=== PATIENT | male | born 1940 | race Caucasian/White ===

== ENCOUNTER 2023-03-30 08:31 | Day surgery (SDC) | payer MEDICARE, SELFPAY ==
[2023-03-30 09:07] VITALS: BP 138/78; PULSE 64; RESP 16; TEMP 36.4; O2SAT 100
[2023-03-30] MEDS: Tropicam./Phenyleph. (1/2.5%) 5 ML BTL OS ×3 (09:28→09:58)
--- NOTE | 2023-03-30 10:13 | W.ANESPRE ---
General Info Date of Service Date Performed: 03/30/23 Height: 5 ft 10 in Weight: 78.7 kg Body Mass Index (BMI): 24.9 Surgical Procedure: Operation Date: 03/30/23 10:40 Proposed Procedure Side Surgeon p Cataract Extraction with IOL Implant Left Kalin Dash MD Meds Allergies and Home Medications Allergies Allergy/AdvReac Type Severity Reaction Status Date / Time No Known Allergies Allergy Unverified 03/30/23 09:18 Home Medication Medication Instructions Recorded amlodipine 5 mg tablet 5 mg PO DAILY 03/28/23 atorvastatin 40 mg tablet 40 mg PO DAILY 03/28/23 carvedilol 3.125 mg tablet 3.125 mg PO BID 03/28/23 folic acid 1 mg tablet 1 mg PO DAILY 03/28/23 Current Visit Medications: Current Medications Generic Name Dose Route Start Last Admin Trade Name Freq PRN Reason Stop Dose Admin Acetaminophen 1,000 mg 03/30/23 06:00 Acetaminophen 500 Mg Tab PO 04/29/23 05:59 Q4H PRN PRN Balanced Salt Solution 500 ml 03/30/23 06:00 Balanced Salt Soln.-Plus 500 Ml Bag OP 04/29/23 05:59 DIRECTED ERICA Miscellaneous Medication 0 ml 03/30/23 06:00 Prednisolone 1%, Moxifloxacin 0.5%, Nepafenac 0.1% 5ml Btl OS 04/29/23 05:59 DIRECTED ERICA Miscellaneous Medication 0 ml 03/30/23 06:00 03/30/23 09:58 Tropicam./Phenyleph. (1/2.5%) 5 Ml Btl OS 04/29/23 05:59 1 drp DIRECTED ERICA Administration Tetracaine HCl 0 ml 03/30/23 06:00 Tetracaine 0.5% 4 Ml Btl OS 04/29/23 05:59 DIRECTED ERICA PFSH Active Problems Active Problems: Problem Status Onset Code Nuclear age-related cataract, left eye H25.12 Medical History Medical History History of anemia History of BPH History of chronic renal failure per pt. DIL STAGE 5 History of intestinal obstruction per pt. DIL 12/2022 History of urinary retention HLD (hyperlipidemia) HTN (hypertension) MGUS (monoclonal gammopathy of unknown significance) Tobacco Smoking/Tobacco Use Status: Former Tobacco Use Alcohol Alcohol Intake: never Substance Use Substance use: Never Substance use type: does not use Vital Signs and Lab Results Vital Signs Most Recent Vital Signs in EMR: Most Recent Vital Signs Temp Pulse Resp BP Pulse Ox 36.4 C L 64 16 138/78 100 03/30/23 09:07 03/30/23 09:07 03/30/23 09:07 03/30/23 09:07 03/30/23 09:07 Lab Results Blood Type / Crossmatch: No Data to Display Complete Blood Count: No Data to Display Complete Metabolic Panel: No Data to Display Liver Function Panel: No Data to Display Coagulation Panel: No Data to Display Cardiac Panel: No Data to Display Arterial Blood Gas: No Data to Display Venous Blood Gas: No Data to Display Pancreas Panel: No Data to Display Thyroid Panel: No Data to Display Infectious Disease: No Data to Display Blood Cultures: No Data to Display Toxicology Panel: No Data to Display Anesthesia Assessment and Plan Anesthesia History Personal History: No History of Anesthesia Complications Family History: No Family History of Anesthesia Complications Exercise Tolerance Exercise Tolerance: Metabolic Equivalents>4 Pertinent Negatives Pertinent Negatives: No Symptoms of GERD, No Major Cardiovascular Symptoms or Complaints and No Major Pulmonary Symptoms or Complaints Cardiac & Pulmonary Exam Cardiac Exam: Normal S1/S2 Heart Sounds Pulmonary Exam: Clear Bilateral Breath Sounds Implantable Cardiac Device Does patient have a Pacemaker or an ICD?: No Airway Exam Known Difficult Airway: No Mallampati Class: 2 Mouth Opening: Normal (> 3cm) Thyromental Distance: Greater than 3 cm Neck Range of Motion: Full ROM Neck Circumference: Normal Teeth Condition: Removable Dentures/Plates Upper ASA Classification ASA Score: ASA 3 Emergency Case?: No NPO Status NPO Status: NPO Clears >2 hours, Solids >8 hours Anesthesia Plan Resuscitation Status: Full Code Anesthesia Technique: MAC Anesthesia Airway Planned: Natural Airway Monitors Used: Standard Monitors
[2023-03-30 10:48] VITALS: BMI 24.9
[2023-03-30] MEDS: Balanced Salt Soln.-PLUS 500 ML BAG OP (11:01)
[2023-03-30] MEDS: Tetracaine 0.5% 4 ML BTL OS (11:02)
[2023-03-30] MEDS: Duovisc Viscoelastic System EACH 1 EACH (11:02)
[2023-03-30] MEDS: Lidocaine 1% Pres-Free 5 ML VIAL (11:03)
[2023-03-30] MEDS: Phenylephrine/Lidocaine (15/10) MG/ML 1 ML VIAL (11:04)
[2023-03-30] MEDS: Povidone-Iodine Ophth 30 ML BTL (11:04)
--- NOTE | 2023-03-30 11:18 | W.PM.DSUDISC ---
Date of service: 03/30/23 Time of Service: 11:18 Discharge Plan Disposition Patient Disposition: Home Discharge Details Attending Provider: Kalin Dash Primary Care Provider: Star Varghese Home Meds and New Rx's Prescriptions: No Action atorvastatin 40 mg tablet 40 mg PO DAILY amlodipine 5 mg tablet 5 mg PO DAILY carvedilol 3.125 mg tablet 3.125 mg PO BID folic acid 1 mg tablet 1 mg PO DAILY Discharge Instructions Stand Alone Forms: Post-op Topical Cataract, Tenzin Cabrera (DSU) Discharge Orders Discharge Orders: Discharge Order (Routine); Ordered 03/30/23 Ordered By: Kalin Dash
--- NOTE | 2023-03-30 11:19 | ROE_ITS ---
Date of service: 03/30/23 Time of Service: 11:19 Operative Note Operative Note DATE OF PROCEDURE: 03/30/23 PRE-OP DIAGNOSIS: Nuclear cataract, left eye POST-OP DIAGNOSIS: same PROCEDURE: Cataract extraction using phacoemulsification with intraocular lens implant, left eye SURGEON: Kalin Dash ANESTHESIA TYPE: Local By Surgeon and MAC Refer to Anesthesia Record PATHOLOGY: none sent COMPLICATIONS: None Patient was transported to: same day Patient's condition: stable Implants: Daryl Clareon [id number] Indications: Progressive decreased vision due to cataract, left eye Procedure Description: CATARACT SURGERY OPERATIVE REPORT PREOPERATIVE DIAGNOSIS: Nuclear cataract, left eye POSTOPERATIVE DIAGNOSIS: Same OPERATION: Cataract extraction using phacoemulsification with posterior chamber intraocular lens implant, left eye. IOL: IOL Delivery Supervisor/Model: Daryl Clareon [id number] IOL Power: + 19.0 diopters IOL Serial Number: [id number] Optic Diameter: 6.0mm Haptic/Overall Diameter: 13.0mm PHACO INFO: Daryl Anpro21urion Vision System with OZil and Active Fluidics Cumulative Dispersed Energy (CDE): 24.22 seconds SURGEON: Kalin Dash MD, BLU ANESTHESIA: Monitored Anesthesia Care (MAC), with local sub-tenon's anesthetic infiltration COMPLICATIONS: None SPECIMENS: None INDICATIONS FOR PROCEDURE: The patient is an 82-year-old male with history of diminished visual acuity in his left eye secondary to the development of nuclear cataract. He is significantly symptomatic that he desires cataract surgery and attempt to improve and maximize his vision. The option of cataract surgery was offered to the patient and he wished to proceed. See office notes for detailed information. PROCEDURE: The correct surgical eye was identified and marked as the left eye and the pupil was dilated in the preoperative area using mydriatics and cycloplegics. The dilated pupil size was 7.0 mm. The patient elected to proceed without oral sedation. The patient was brought to the operating room where cardiopulmonary monitoring was instituted and surgical time-out was performed, confirming the correct operative eye and IOL power. Topical anesthesia was administered and ophthalmic povidone-iodine 5% was inst illed into the conjunctival fornices. The cait-ocular area was prepped with Betadine 10% solution and draped in the usual sterile fashion for intraocular surgery, including an aperture drape. A Tegaderm transparent film dressing was cut in half and used to cover the lashes and lid margins. Care was taken to sequester the lashes and lid margins under the Tegaderm dressing. A lid speculum was placed between the lids of the operative eye and the Daryl LuxOR Revalia operating microscope was maneuvered into position. Christina scissors were then used to make a conjunctival buttonhole approximately 6mm posterior to the limbus in the inferonasal quadrant. Blunt dissection was carried out to expose bare sclera, and a blunt-tipped sub-tenon?s anesthesia cannula was introduced and passed posteriorly along the globe where non- preserved plain lidocaine was injected into posterior sub-Tenon?s space. A sideport knife was used to make a paracentesis port. Intraocular phenylephrine/lidocaine was injected into the anterior chamber. The anterior chamber was then filled with viscoelastic. A keratome knife was used construct a two-plane clear corneal tunnel extending 2.0mm into clear cornea. A flap was raised on the anterior capsule and capsulorhexis forceps were used to complete a continuous curvilinear capsulorhexis of 5.0 mm. Balanced salt solution was then used to perform cortical cleaving hydrodissection and nuclear hydrodelineation until the lens could be freely rotated within the capsular bag. The lens nucleus was then disassembled and removed within the capsular bag and iris plane using phacoemulsification. Residual cortical material was removed using the irrigation/aspiration handpiece. The posterior capsule was carefully polished to remove as much residual lens epithelial cells as safely possible. The capsular bag was then inflated and the anterior chamber deepened with viscoelastic. The lens implant described above was inserted into the capsular bag using the Daryl Autonome Injector. A Kuglen hook was used to dial the IOL into position. Residual viscoelastic was then removed first from posterior to the IOL, then from the anterior chamber using the I/A handpiece. The lens implant was noted to center nicely within the capsular bag. The incisions were stromally hydrated, and the anterior chamber was reformed using BSS. Then 0.5cc of moxifloxacin 1.0mg/ml were injected into the capsular bag and anterior chamber. The incisions were checked with a Weck spear and found to be secure. Several drops of ophthalmic povidone-iodine 5% were then applied to the eye followed by two drops of Imprimis combination prednisolone/moxifloxacin/nepafenac solution. The drapes were removed and a clear plastic protective eye shield was placed over the eye. The patient was then returned to Same Day Surgery in stable condition.
[2023-03-30 11:20] VITALS: BP 141/79; PULSE 62; RESP 16; TEMP 36.4; O2SAT 99
--- NOTE | 2023-03-30 11:47 | W.ANESPOSTOP ---
Postoperative Evaluation Date, Time and Location Date Performed: 03/30/23 Time Performed: 11:47 Patient Location: Day Surgery Unit Vital Signs Most Recent Imported Vital Signs: Most Recent Vital Signs Temp Pulse Resp BP Pulse Ox 36.4 C L 64 16 138/78 100 03/30/23 09:07 03/30/23 09:07 03/30/23 09:07 03/30/23 09:07 03/30/23 09:07 Assessment Mental Status: Awake (Alert & Oriented to Patient Baseline) Airway and Respiratory Function: Patent airway with normal (patient baseline) respiratory exam Cardiovascular Function: Hemodynamically Stable Hydration Status: Adequately Hydrated Nausea & Vomiting: No Nausea or Vomiting Pain: Pt. Denies Any Pain Peripheral Nerve Block: Patient did not receive a nerve block Postoperative Comments:: Discussed with patient and [id number] and will follow up and get cardiology records for our system.
== END 2023-03-30 11:58 | disposition home or self-care (01) ==
PROVIDERS: PCP Nurse Practitioner Family; Visit Provider Ophthalmology
PROC: (CPT 66984; principal; 2023-03-30 10:30)
DX: H25.12 Age-related nuclear cataract, left eye (principal); I10 Essential (primary) hypertension
CPT/HCPCS: 66984; V2632

== ENCOUNTER 2023-04-13 10:31 | Day surgery (SDC) | payer MEDICARE, SELFPAY ==
[2023-04-13 10:40] VITALS: BP 137/80; PULSE 66; RESP 16; TEMP 36.4; O2SAT 99
[2023-04-13] MEDS: Tropicam./Phenyleph. (1/2.5%) 5 ML BTL OD ×3 (10:42→11:02)
[2023-04-13 10:45] VITALS: BP 137/80; PULSE 66; RESP 16; TEMP 36.4; O2SAT 99
--- NOTE | 2023-04-13 11:16 | W.ANESPRE ---
General Info Date of Service Date Performed: 04/13/23 Height: 5 ft 10 in Weight: 77.9 kg Body Mass Index (BMI): 24.6 Surgical Procedure: Operation Date: 04/13/23 12:25 Proposed Procedure Side Surgeon p Cataract Extraction with IOL Implant Right Kalin Dash MD Meds Allergies and Home Medications Allergies Allergy/AdvReac Type Severity Reaction Status Date / Time No Known Allergies Allergy Unverified 04/13/23 10:50 Home Medication Medication Instructions Recorded amlodipine 5 mg tablet 5 mg PO DAILY 03/28/23 atorvastatin 40 mg tablet 40 mg PO DAILY 03/28/23 carvedilol 3.125 mg tablet 3.125 mg PO BID 03/28/23 folic acid 1 mg tablet 1 mg PO DAILY 03/28/23 Current Visit Medications: Current Medications Generic Name Dose Route Start Last Admin Trade Name Freq PRN Reason Stop Dose Admin Acetaminophen 1,000 mg 04/13/23 06:00 Acetaminophen 500 Mg Tab PO 05/13/23 05:59 Q4H PRN PRN Balanced Salt Solution 500 ml 04/13/23 06:00 Balanced Salt Soln.-Plus 500 Ml Bag OP 05/13/23 05:59 DIRECTED ERICA Miscellaneous Medication 0 ml 04/13/23 06:00 Prednisolone 1%, Moxifloxacin 0.5%, Nepafenac 0.1% 5ml Btl OD 05/13/23 05:59 DIRECTED ERICA Miscellaneous Medication 0 ml 04/13/23 06:00 04/13/23 11:02 Tropicam./Phenyleph. (1/2.5%) 5 Ml Btl OD 05/13/23 05:59 1 drp DIRECTED ERICA Administration Tetracaine HCl 0 ml 04/13/23 06:00 Tetracaine 0.5% 4 Ml Btl OD 05/13/23 05:59 DIRECTED ERICA PFSH Active Problems Active Problems: Problem Status Onset Code Nuclear age-related cataract, left eye H25.12 Nuclear age-related cataract, right eye H25.11 Medical History Medical History (Updated 04/13/23 @ 11:21 by Devon Browne, [employer]) Cardiomyopathy Reduced EF History of anemia History of BPH History of chronic renal failure per pt. DIL STAGE 5 History of intestinal obstruction per pt. DIL 12/2022 History of urinary retention HLD (hyperlipidemia) HTN (hypertension) MGUS (monoclonal gammopathy of unknown significance) Pulmonary hypertension Mild to Moderate from 2020 Echo Surgical History Surgical History (Updated 04/13/23 @ 10:50 by Hanny Montemayor) History of cataract surgery Tobacco Smoking/Tobacco Use Status: Former Tobacco Use Alcohol Alcohol Intake: never Substance Use Substance use: Never Substance use type: does not use Vital Signs and Lab Results Vital Signs Most Recent Vital Signs in EMR: Most Recent Vital Signs Temp Pulse Resp BP Pulse Ox 36.4 C L 66 16 137/80 99 04/13/23 10:45 04/13/23 10:45 04/13/23 10:45 04/13/23 10:45 04/13/23 10:45 Lab Results Blood Type / Crossmatch: No Data to Display Complete Blood Count: No Data to Display Complete Metabolic Panel: No Data to Display Liver Function Panel: No Data to Display Coagulation Panel: No Data to Display Cardiac Panel: No Data to Display Arterial Blood Gas: No Data to Display Venous Blood Gas: No Data to Display Pancreas Panel: No Data to Display Thyroid Panel: No Data to Display Infectious Disease: No Data to Display Blood Cultures: No Data to Display Toxicology Panel: No Data to Display Anesthesia Assessment and Plan Anesthesia History Personal History: No History of Anesthesia Complications Family History: No Family History of Anesthesia Complications Exercise Tolerance Exercise Tolerance: Metabolic Equivalents>4 Pertinent Negatives Pertinent Negatives: No Symptoms of GERD Cardiac & Pulmonary Exam Cardiac Exam: Normal S1/S2 Heart Sounds Pulmonary Exam: Clear Bilateral Breath Sounds Implantable Cardiac Device Does patient have a Pacemaker or an ICD?: No Airway Exam Known Difficult Airway: No Mallampati Class: 2 Mouth Opening: Normal (> 3cm) Thyromental Distance: Greater than 3 cm Neck Range of Motion: Full ROM Neck Circumference: Normal Teeth Condition: Removable Dentures/Plates Upper ASA Classification ASA Score: ASA 4 Emergency Case?: No NPO Status NPO Status: NPO Clears >2 hours, Solids >8 hours Anesthesia Plan Resuscitation Status: Full Code Anesthesia Technique: MAC Anesthesia Airway Planned: Natural Airway Monitors Used: Standard Monitors
[2023-04-13 11:17] VITALS: BMI 24.6
--- NOTE | 2023-04-13 11:45 | RT.EKG_ITS ---
APPROVED REPORT Exam: Resting ECG Reason for Exam: R/O A-[place] Patient Location: O HR:73 bpm ECG Measurements Heart Rate 73 AXIS NV 84 P 0 QRSd 170 QRS -88 QT 462 T 61 QTc 501 Conclusion Sinus rhythm...normal P axis, V-rate 60- 99 Atrial premature complexes in couplets...pair SV complexes w/ short R-R Right bundle branch block...QRSd>120, terminal axis(90,270)
[2023-04-13] MEDS: Tetracaine 0.5% 4 ML BTL OD (11:50)
[2023-04-13] MEDS: Povidone-Iodine Ophth 30 ML BTL (11:50)
[2023-04-13] MEDS: Balanced Salt Soln.-PLUS 500 ML BAG OP (11:52)
[2023-04-13] MEDS: Lidocaine 1% Pres-Free 5 ML VIAL (11:52)
[2023-04-13] MEDS: Phenylephrine/Lidocaine (15/10) MG/ML 1 ML VIAL (11:52)
[2023-04-13] MEDS: Duovisc Viscoelastic System EACH 1 EACH (11:59)
[2023-04-13 12:16] VITALS: BP 124/97; PULSE 53; RESP 16; TEMP 36.5; O2SAT 100
--- NOTE | 2023-04-13 12:17 | W.PM.DSUDISC ---
Date of service: 04/13/23 Time of Service: 12:17 Discharge Plan Discharge Details Attending Provider: Kalin Dash Primary Care Provider: Star Varghese Home Meds and New Rx's Prescriptions: No Action atorvastatin 40 mg tablet 40 mg PO DAILY amlodipine 5 mg tablet 5 mg PO DAILY carvedilol 3.125 mg tablet 3.125 mg PO BID folic acid 1 mg tablet 1 mg PO DAILY Discharge Instructions Stand Alone Forms: Post-op Topical Cataract, Tenzin Cabrera (DSU) DS: Diagnosis Discharge Diagnosis (1) Nuclear age-related cataract, right eye: Status: Resolved
--- NOTE | 2023-04-13 12:18 | W.PM.OP ---
Date of service: 04/13/23 Time of Service: 12:18 Operative Note Operative Note DATE OF PROCEDURE: 04/13/23 PRE-OP DIAGNOSIS: Nuclear cataract, right eye POST-OP DIAGNOSIS: same PROCEDURE: Cataract extraction using phacoemulsification with intraocular lens implant, right eye SURGEON: Kalin Dash ANESTHESIA TYPE: Local By Surgeon and MAC Refer to Anesthesia Record ESTIMATED BLOOD LOSS: 0 PATHOLOGY: none sent COMPLICATIONS: None Patient was transported to: same day Patient's condition: stable Implants: Daryl Clareon [id number] Indications: Progressive decreased vision due to cataract, right eye Procedure Description: CATARACT SURGERY OPERATIVE REPORT PREOPERATIVE DIAGNOSIS: Nuclear cataract, right eye POSTOPERATIVE DIAGNOSIS: Same OPERATION: Cataract extraction using phacoemulsification with posterior chamber intraocular lens implant, right eye. IOL: IOL Labor Custodian/Model: Daryl Clareon [id number] IOL Power: + 19.0 diopters IOL Serial Number: [id number] Optic Diameter: 6.0mm Haptic/Overall Diameter: 13.0mm PHACO INFO: Daryl Laurus Energyurion Vision System with OZil and Active Fluidics Cumulative Dispersed Energy (CDE): 25.31 seconds SURGEON: Kalin Dash MD, BLU ANESTHESIA: Monitored Anesthesia Care (MAC), with local sub-tenon's anesthetic infiltration COMPLICATIONS: None SPECIMENS: None INDICATIONS FOR PROCEDURE: The patient is an 82-year-old gentleman with history of diminished visual acuity in both eyes secondary to the development of dense bilateral nuclear cataract. He has already undergone cataract surgery in the left eye and is doing well postoperatively. He now presents for cataract surgery in the right eye. See office notes for detailed information. PROCEDURE: The correct surgical eye was identified and marked as the right eye and the pupil was dilated in the preoperative area using mydriatics and cycloplegics. The dilated pupil size was 6.0 mm. The patient elected to proceed without oral sedation. The patient was brought to the operating room where cardiopulmonary monitoring was instituted and surgical time-out was performed, confirming the correct operative eye and IOL power. Topical anesthesia was administered and ophthalmic povidone-iodine 5% was instilled into the conjunctival fornices. The cait-ocular area was prepped with Betadine 10% solution and draped in the usual sterile fashion for intraocular surgery, including an aperture drape. A Tegaderm transparent film dressing was cut in half and used to cover the lashes and lid margins. Care was taken to sequester the lashes and lid margins under the Tegaderm dressing. A lid speculum was placed between the lids of the operative eye and the Susan-Janette operating microscope was maneuvered into position. Christina scissors were then used to make a conjunctival buttonhole approximately 6mm posterior to the limbus in the inferonasal quadrant. Blunt dissection was carried out to expose bare sclera, and a blunt-tipped sub-tenon?s anesthesia cannula was introduced and passed posteriorly along the globe where non-preserved plain lidocaine was injected into posterior sub-Tenon?s space. A sideport knife was used to make a paracentesis port. Intraocular phenylephrine/lidocaine was injected into the anterior chamber. The anterior chamber was then filled with viscoelastic. A keratome knife was used to construct a two--plane clear corneal tunnel extending 2.0mm into clear cornea. A flap was raised on the anterior capsule and capsulorhexis forceps were used to complete a continuous curvilinear capsulorhexis of 5.0 mm. Balanced salt solution was then used to perform cortical cleaving hydrodissection and nuclear hydrodelineation until the lens could be freely rotated within the capsular bag. The lens nucleus was then disassembled and removed within the capsular bag and iris plane using phacoemulsification. Residual cortical material was removed using the I/A handpiece. The posterior capsule was carefully polished to remove as much residual lens epithelial cells as safely possible. The capsular bag was then inflated and the anterior chamber deepened with cohesive viscoelastic. The lens implant described above was inserted into the capsular bag using the Daryl Autonome Injector. A Kuglen hook was used to dial the IOL into position. Residual viscoelastic was then removed first from posterior to the IOL, then from the anterior chamber using the I/A handpiece. The lens implant was noted to center nicely within the capsular bag. The incisions were stromally hydrated, and the anterior chamber was reformed using BSS. Then 0.5cc of moxifloxacin 1.0mg/ml were injected into the capsular bag and anterior chamber. The incisions were checked with a Weck spear and found to be secure. Several drops of ophthalmic povidone-iodine 5% were then applied to the eye followed by two drops of Imprimis combination prednisolone/moxifloxacin/nepafenac solution. The drapes were removed and a clear plastic protective eye shield was placed over the eye. The patient was then returned to Same Day Surgery in stable condition.
[2023-04-13 12:50] VITALS: BP 116/71; PULSE 65; RESP 16; TEMP 36.4; O2SAT 99
--- NOTE | 2023-04-13 13:00 | W.ANESPOSTOP ---
Postoperative Evaluation Date, Time and Location Date Performed: 04/13/23 Time Performed: 12:50 Patient Location: Day Surgery Unit Vital Signs Most Recent Imported Vital Signs: Most Recent Vital Signs Temp Pulse Resp BP Pulse Ox 36.4 C L 65 16 116/71 99 04/13/23 12:50 04/13/23 12:50 04/13/23 12:50 04/13/23 12:50 04/13/23 12:50 Pain Score Most Recent Pain Score: Most Recent Pain Score Pain Level 0 04/13/23 12:50 Assessment Mental Status: Awake (Alert & Oriented to Patient Baseline) Airway and Respiratory Function: Patent airway with normal (patient baseline) respiratory exam Cardiovascular Function: Hemodynamically Stable Hydration Status: Adequately Hydrated Nausea & Vomiting: No Nausea or Vomiting Pain: Pt. Denies Any Pain Peripheral Nerve Block: Patient did not receive a nerve block Postoperative Comments:: Post op EKG shows SR with PACs. No AFib
== END 2023-04-13 12:55 ==
LOC: SUR 10:32
PROVIDERS: PCP Nurse Practitioner Family; Visit Provider Ophthalmology
PROC: (CPT 66984; principal; 2023-04-13 12:15)
DX: H25.11 Age-related nuclear cataract, right eye (principal); I27.20 Pulmonary hypertension, unspecified
CPT/HCPCS: 66984; V2632; 93005; 93010